=== PATIENT | male | born 1980 | race Hispanic/Latino ===

== ENCOUNTER 2023-07-14 14:20 | Emergency (ER) | payer SELFPAY ==
[~2023-07-14] VITALS: Ht 172.7 cm; Wt 122.5 kg
[2023-07-14] MEDS ORDERED: ALBUTEROL/IPRATROPIUM 3 ML NEB NEB STA ×2 (14:38→17:57)
[2023-07-14 15:06] LABS: HEMATOCRIT 36.9 % (38.2-49.6); HEMOGLOBIN 12.4 g/dL (14.0-18.0); MEAN CORPUSCULAR HEMOGLOBIN 28.2 pg (28-32); MEAN CORPUSCULAR VOLUME 84.1 fL (81-99); RED BLOOD COUNT 4.39 x10e6/uL (4.3-5.7); WHITE BLOOD COUNT 9.11 x10e3/uL (4.8-10.8)
[2023-07-14 15:07] LABS: BASOPHILS % 0.3 % (0.0-1.0); EOSINOPHILS # (AUTO) 0.3 (0.0-0.4); EOSINOPHILS % 2.7 % (0.0-6.0); LYMPHOCYTES # (AUTO) 2.3 (1.0-3.2); LYMPHOCYTES % 24.7 % (18.0-39.1); MEAN CORPUSCULAR HGB CONC 33.6 g/dL (31-35); MONOCYTES # (AUTO) 1.3 (0.2-0.8); MONOCYTES % 14.3 % (4.4-11.3); NEUTROPHILS # (AUTO) 5.3 (2.1-6.9); NEUTROPHILS % 57.7 % (38.7-80.0); PLATELET COUNT 247 x10e3/uL (140-360); RED CELL DISTRIBUTION WIDTH 12.2 % (11.7-14.4)
[2023-07-14 15:20] VITALS: PULSE 82; RESP 18; O2SAT 94
[2023-07-14 15:27] LABS: ALANINE AMINOTRANSFERASE 27 IU/L (0-55); ALBUMIN 3.2 g/dL (3.5-5.0); ALBUMIN/GLOBULIN RATIO 0.9 (0.8-2.0); ALKALINE PHOSPHATASE 51 IU/L (40-150); ANION GAP 15.2 mmol/L (8-16); BILIRUBIN,TOTAL 0.9 mg/dL (0.2-1.2); BLOOD UREA NITROGEN 11 mg/dL (7-26); BUN/CREATININE RATIO 8 (6-25); CALCIUM 8.7 mg/dL (8.4-10.2); CARBON DIOXIDE 24 mmol/L (22-29); CHLORIDE 102 mmol/L (98-107); CREATINE KINASE 75 IU/L (30-200); CREATININE, SERUM 1.43 mg/dL (0.72-1.25); EST GLOMERULAR FILTRATION RATE 63 ML/MIN (>=60); GLUCOSE 153 mg/dL (74-118); POTASSIUM 4.2 mmol/L (3.5-5.1); SODIUM 137 mmol/L (136-145); TOTAL PROTEIN 6.9 g/dL (6.5-8.1)
[2023-07-14 15:35] LABS: TROPONIN I < 0.001 ng/mL (0-0.300)
[2023-07-14] MEDS ORDERED: IOPAMIDOL 370 MG/ML 100 ML INFUS..BTL INJ ONE (15:43)
[2023-07-14 18:13] VITALS: PULSE 88; RESP 22; O2SAT 98
[2023-07-14] MEDS ORDERED: VENTOLIN HFA18 GM INH (18:27)
[2023-07-14] MEDS ORDERED: AZITHROMYCIN250 MG PO (18:27)
[2023-07-14] MEDS ORDERED: PREDNISONE20 MG PO (18:27)
[2023-07-14 18:28] VITALS: PULSE 85; RESP 18; O2SAT 100
== END 2023-07-14 18:44 | disposition home or self-care (01) ==
LOC: ER 14:26
DX: R06.02 Shortness of breath (principal); J90 Pleural effusion, not elsewhere classified; J45.909 Unspecified asthma, uncomplicated; Z20.822 Contact with and (suspected) exposure to COVID-19
CPT/HCPCS: 36415; 71045; 71260; 80053; 82550; 83690; 83880; 84484; 85025; 93005; 94640; 94799; 99284; Q9967; U0002